=== PATIENT | female | born 1985 | race American Indian/Alaskan Native ===

== ENCOUNTER 2018-07-14 04:12 | Emergency (ER) | payer OTHER ==
[2018-07-14 04:20] VITALS: BP 134/86
[2018-07-14] MEDS ORDERED: XYLOCAINE 1% MPF 5 mL INFILTRATI ONE (04:50)
[2018-07-14] MEDS ORDERED: ROCEPHIN IM ONE (04:50)
[2018-07-14] MEDS ORDERED: FIORICET PO ONE (04:51)
[2018-07-14] MEDS ORDERED: TORADOL IM ONE (04:51)
[2018-07-14] MEDS ORDERED: AUGMENTIN 875 MG PO ONE (04:52)
--- NOTE | 2018-07-14 04:56 | Emergency Department Report ---
ED ENT HPI - General Chief complaint: Dental/Oral Stated complaint: TOOTHACHE, HEADACHE Time Seen by Provider: 07/14/18 04:40 Source: patient Mode of arrival: Ambulatory Limitations: No Limitations - History of Present Illness Initial comments: Patient is a 33-year-old Citizen Of [place] female with no past medical history presents to the ED with complaint of acute onset persistent severe right mandibular premolar and molar toothaches with swollen gums for the last 1 week, worse in the last 2 days. Patient states that the pain radiates to her right ear with a right temporal headache. Patient states that she is scheduled for a dental procedure on 07/25/2018. Patient states that she has been taking [id number] pain medications including ibuprofen, Tylenol, naproxen with no relief. Patient denies fever, chills, nausea, vomiting, dizziness, sore throat, nasal and sinus congestion, cough, chest pain, change in vision, or neck pain MD complaint: tooth pain (right mandibular premolars and molars) -: Sudden, week(s) (1) Location: R ear, tooth # (right mandibular premolars and molars with swollen gum) Severity: severe Severity scale (0 -10): 8 Quality: stabbing, aching, sharp, constant Consistency: constant Improves with: none Worsens with: eating Context- Dental: history of dental caries, poor dental care Associated Symptoms: gum swelling (right mandibular ), toothache (right mandibular premolars and molars). denies: fever, cough, pain with swallowing, sore throat, discharge from ear, rhinorrhea - Related Data Previous Rx's Medication Instructions Recorded Last Taken Type Acetaminophen/Codeine [Tylenol 1 tab PO Q6H PRN #15 tab 07/14/18 Unknown Rx /Codeine # 3 tab] Clindamycin [Clindamycin CAP] 300 mg PO Q8HR #60 capsule 07/14/18 Unknown Rx Ketorolac [Toradol] 10 mg PO Q8H PRN #20 tablet 07/14/18 Unknown Rx ED Dental HPI - General Chief complaint: Dental/Oral Stated complaint: TOOTHACHE, HEADACHE Time Seen by Provider: 07/14/18 04:40 Source: patient Mode of arrival: Ambulatory Limitations: No Limitations - History of Present Illness Initial comments: Patient is a 33-year-old Citizen Of [place] female with no past medical history presents to the ED with complaint of acute onset persistent severe right mandibular premolar and molar toothaches with swollen gums for the last 1 week, worse in the last 2 days. Patient states that the pain radiates to her right ear with a right temporal headache. Patient states that she is scheduled for a dental procedure on 07/25/2018. Patient states that she has been taking [id number] pain medications including ibuprofen, Tylenol, naproxen with no relief. Patient denies fever, chills, nausea, vomiting, dizziness, sore throat, nasal and sinus congestion, cough, chest pain, change in vision, or neck pain MD complaint: tooth pain (right mandibular premolars and molar), ear pain (right) -: Sudden, week(s) (1) 1 - Swollen painful gums; painful premolars and molar toothache Severity: severe Quality: stabbing, aching, sharp, constant Consistency: constant Improves with: none Worsens with: eating, chewing Context- Dental: history of dental caries, poor dental care Dental Associated Symptons: Yes: Headache, Earache, Gum Swelling. No: Sore Throat, Fever - Related Data Previous Rx's Medication Instructions Recorded Last Taken Type Acetaminophen/Codeine [Tylenol 1 tab PO Q6H PRN #15 tab 07/14/18 Unknown Rx /Codeine # 3 tab] Clindamycin [Clindamycin CAP] 300 mg PO Q8HR #60 capsule 07/14/18 Unknown Rx Ketorolac [Toradol] 10 mg PO Q8H PRN #20 tablet 07/14/18 Unknown Rx ED Review of Systems ROS: Stated complaint: TOOTHACHE, HEADACHE Other details as noted in HPI Comment: All other systems reviewed and negative Constitutional: no symptoms reported, see HPI. denies: chills, fever Eyes: as per HPI. denies: eye pain, eye discharge, vision change ENT: as per HPI, dental pain (right mandibular premolars and molars; swollen painful gums). denies: ear pain, throat pain, hearing loss, epistaxis, congestion Respiratory: no symptoms reported, see HPI. denies: cough, shortness of breath, wheezing Cardiovascular: as per HPI. denies: chest pain, palpitations, other Endocrine: no symptoms reported, see HPI. denies: excessive sweating, intolerance to cold, intolerance to heat, increased hunger, increased urine Gastrointestinal: as per HPI. denies: abdominal pain, nausea, diarrhea Genitourinary: as per HPI. denies: urgency, dysuria, discharge Musculoskeletal: as per HPI. denies: back pain, joint swelling, arthralgia Skin: as per HPI. denies: rash, lesions Neurological: as per HPI. denies: headache, weakness, paresthesias Psychiatric: as per HPI. denies: anxiety, depression Hematological/Lymphatic: as per HPI. denies: easy bleeding, easy bruising ED Past Medical Hx - Past Medical History Previous Medical History?: No - Surgical History Past Surgical History?: Yes Additional Surgical History: c- sec X 3, tubaligation - Social History Smoking Status: Never Smoker Substance Use Type: None - Medications Home Medications: Home Medications Medication Instructions Recorded Confirmed Last Taken Type Acetaminophen/Codeine [Tylenol 1 tab PO Q6H PRN #15 tab 07/14/18 Unknown Rx /Codeine # 3 tab] Clindamycin [Clindamycin CAP] 300 mg PO Q8HR #60 capsule 07/14/18 Unknown Rx Ketorolac [Toradol] 10 mg PO Q8H PRN #20 tablet 07/14/18 Unknown Rx ED Physical Exam - General Limitations: No Limitations General appearance: alert, in no apparent distress - Head Head exam: Present: atraumatic, normocephalic, normal inspection - Eye Eye exam: Present: normal appearance, PERRL, EOMI. Absent: periorbital swelling, other - ENT ENT exam: Present: normal exam, mucous membranes moist, TM's normal bilaterally, normal external ear exam, other (Swollen severely tender right mandibular gingiva; severe tender premolar and molar teeth) - Neck Neck exam: Present: normal inspection, full ROM. Absent: tenderness, meningismus, lymphadenopathy - Respiratory Respiratory exam: Present: normal lung sounds bilaterally. Absent: respiratory distress, wheezes, rales, rhonchi, chest wall tenderness, decreased breath sounds, prolonged expiratory - Cardiovascular Cardiovascular Exam: Present: regular rate, normal rhythm, normal heart sounds. Absent: systolic murmur, diastolic murmur, rubs, gallop - GI/Abdominal GI/Abdominal exam: Present: soft, normal bowel sounds. Absent: tenderness, guarding, hyperactive bowel sounds, hypoactive bowel sounds, organomegaly - Rectal Rectal exam: Present: deferred - Extremities Exam Extremities exam: Present: normal inspection, full ROM, normal capillary refill - Back Exam Back exam: Present: normal inspection, full ROM. Absent: tenderness, CVA tenderness (R), CVA tenderness (L), muscle spasm, paraspinal tenderness, vertebral tenderness - Neurological Exam Neurological exam: Present: alert, oriented X3, CN II-XII intact, normal gait, reflexes normal - Psychiatric Psychiatric exam: Present: normal affect, normal mood - Skin Skin exam: Present: warm, dry, intact, normal color. Absent: rash ED Course Vital Signs 07/14/18 04:18 Temperature 98.3 F Pulse Rate 94 H Respiratory 18 Rate Blood Pressure 134/86 O2 Sat by Pulse 98 Oximetry - Reevaluation(s) Reevaluation #1: 07/14/18 05:02 Patient is alert and oriented 3 and is not in distress but pain with normal vital signs. Patient was treated for pain in the ED. Patient discharged home on pain medications and antibiotics and advised to follow up with her dentist as previously scheduled for her dental procedure. On reevaluation, patient's pain is moderately controlled. Patient also advised to return to the ED immediately if symptoms get worse. ED Medical Decision Making - Medical Decision Making Patient is alert and oriented 3 and is not in distress but pain with normal vital signs. Patient was treated for pain in the ED. Patient discharged home on pain medications and antibiotics and advised to follow up with her dentist as previously scheduled for her dental procedure. On reevaluation, patient's pain is moderately controlled. Patient also advised to return to the ED immediately if symptoms get worse. - Differential Diagnosis dental caries; dental abscess; acute gingivitis Critical care attestation.: If time is entered above; I have spent that time in minutes in the direct care of this critically ill patient, excluding procedure time. ED Disposition Clinical Impression: Acute gingivitis, Dental caries, Dental abscess Disposition: TO HOME OR SELFCARE Is pt being admited?: No Does the pt Need Aspirin: No Condition: Stable Instructions: Gingivitis (ED), Dental Abscess (ED), Dental Caries (ED) Additional Instructions: Take medications with food, drink plenty of fluids and follow-up with your dentist or primary care physician in 5-7 days for reevaluation. Ensure that you keep your scheduled dentist appointment for a dental procedure. Return to the ED immediately if symptoms get worse. Prescriptions: Clindamycin [Clindamycin CAP] 300 mg PO Q8HR #60 capsule Ketorolac [Toradol] 10 mg PO Q8H PRN #20 tablet PRN Reason: Pain Acetaminophen/Codeine [Tylenol /Codeine # 3 tab] 1 tab PO Q6H PRN #15 tab PRN Reason: Pain , Severe (7-10) Referrals: MIREYA BISHOP MD [Primary Care Provider] - 3-5 Days Time of Disposition: 05:05 Print Language: [place]IZ[place]
== END 2018-07-14 06:02 | disposition home or self-care (01) ==
LOC: ED 04:12
DX: K04.7 Periapical abscess without sinus (principal); K02.9 Dental caries, unspecified; K05.00 Acute gingivitis, plaque induced; H92.01 Otalgia, right ear; Z98.51 Tubal ligation status
CPT/HCPCS: 96372; 99282; J0696; J1885